=== PATIENT | female | born 2000 | race Caucasian/White ===

== ENCOUNTER 2019-03-03 15:55 | Emergency (ER) ==
[~2019-03-03 15:55] MED LIST: ALBUTEROL0.09 MG/A1 IH; CLARITIN; FLOVENT 110MCG7.9 GM IH; ZYRTEC 10MG
== END 2019-03-03 16:43 | disposition left against medical advice (07) ==
LOC: COL.ER 15:55
DX: Z72.89 Other problems related to lifestyle (principal)